=== PATIENT | male | born 1985 | race Caucasian/White ===

== ENCOUNTER 2020-06-29 09:36 | Emergency (ER) | payer OTHER, SELFPAY ==
--- NOTE | ~2020-06-29 | XR_ITS ---
EXAMINATION: XR clavicle RT DATE: 06/29/2020 10:53 INDICATION: Right clavicle pain. TECHNIQUE: 2 views of right clavicle were obtained. COMPARISON: None. FINDINGS: Bone alignment is normal. No fracture. Joint spaces are normal. IMPRESSION: 1. No fracture. Reviewed, dictated and finalized at location B. FOOD DOUGH MIXER IMPRESSION: 1. No fracture.
--- NOTE | ~2020-06-29 | XR_ITS ---
EXAMINATION: XR sacrum coccyx min 2V EXAM DATE: 06/29/2020 10:53 INDICATION: buttock pain s/p fall 2 days ago. Initial encounter. TECHNIQUE: Frontal, inlet, lateral projections of the sacrum and coccyx. There is no prior study fo r comparison. FINDINGS: There are no acute sacrococcygeal fractures or dislocations identified. Sacrum, sacroiliac joints, sacral arcuate lines are intact. There is no subcutaneous gas. The soft tissue is unremark able. There are no radiopaque foreign bodies. IMPRESSION: Unremarkable sacrococcygeal exam. Reviewed, dictated and finalized at location A. SH MACHINE TENDER
[2020-06-29 10:07] VITALS: BP 125/75; PULSE 86; RESP 16; TEMP 37.1; O2SAT 99
--- NOTE | 2020-06-29 10:10 | ED.MALEGU ---
HPI - Male Genitourinary General Chief complaint: Urogenital-Male Stated complaint: possible uti Time Seen by Provider: 06/29/20 10:11 Source: patient Mode of arrival: ambulatory Limitations: no limitations History of Present Illness HPI Narrative: Luis Syed is a 34 yo male who is autistic and lives in a [place] [facility]. Pt is here with his caregiver. He states that urine started to burn and have frequency yesterday. No abdominal pain, no fever, no N/V/D. Patient fell in shower about 2 days ago but is unclear about the exact time states hit sacrum which is now sore especially when he sits and his right clavicle which has pinpoint tenderness in the proximal end of the right clavicle but has normal range of motion of arm Related Data Home Medications Medication Instructions Recorded Confirmed acetaminophen 325 mg capsule 650 mg PO Q4H PRN cap 05/02/19 06/29/20 aluminum-mag hydroxide-simethicone 15 ml PO ONCE PRN ml 05/02/19 06/29/20 200 mg-200 mg-20 mg/5 mL oral susp aripiprazole 20 mg tablet 20 mg PO BID tablet 05/02/19 06/29/20 bisacodyl 5 mg tablet 10 mg PO DAILY PRN tablet 05/02/19 06/29/20 bismuth subsalicylate 262 mg/15 mL 524 mg PO Q1H PRN 05/02/19 06/29/20 oral suspension diphenhydramine HCl 25 mg capsule 25 mg PO Q6H PRN 05/02/19 06/29/20 lisinopril 20 mg tablet 20 mg PO DAILY 05/02/19 06/29/20 neomycin-bacitracn Zn-polymyx 3.5 1 applic TOPICAL BID 05/02/19 06/29/20 mg-400 unit-5,000 unit/gram top oint omeprazole 40 mg capsule,delayed 40 mg PO DAILY 05/02/19 06/29/20 release oxcarbazepine 600 mg tablet 1,200 mg PO BID tablet 05/02/19 06/29/20 sertraline 100 mg tablet 300 mg PO DAILY tablet 05/02/19 06/29/20 aripiprazole 15 mg PO DAILY 06/29/20 06/29/20 aripiprazole 30 mg PO DIRECTED 06/29/20 06/29/20 Allergies Allergy/AdvReac Type Severity Reaction Status Date / Time Tricyclic Compounds Allergy Mild Unknown Verified 06/29/20 09:57 Review of Systems Review of Systems: Narrative: CONSTITUTIONAL: Denies fever, chills, sweats. EYES: Denies visual changes, redness, discharge. ENT: Denies rhinorrhea, congestion, sore throat, otalgia. CARDIOVASCULAR: Denies chest pain, palpitations, edema. RESPIRATORY: Denies dyspnea, wheezing, cough GASTROINTESTINAL: Denies abdominal pain, nausea, vomiting, diarrhea. GENITOURINARY:has dysuria, hematuria, abnormal discharge SKIN: Denies rash or itching. NEUROLOGIC: Denies numbness, or focal weakness. PSYCHIATRIC: Denies anxiety or depression. sacral pain and R proximal clavicle PMFSH Past Medical History Medical History Anxiety and depression Attention deficit disorder predominant inattentive type Autistic disorder Carpal tunnel syndrome, bilateral upper limbs Congenital ankle deformity Depressive disorder Obesities, morbid Obstructive apnea Overactive bladder Pes planus of both feet Vitamin D deficiency, unspecified Surgical History Surgical History No history of previous surgery Family History Family History Other Family history of mental disorder Social History Social History Smoking status: Never smoker Alcohol intake: never Gender identity (if verbalized by the patient): Male Comments At time of signature, I agree with nursing past medical, surgical, social and family history. There is no relevant family history pertinent to the presenting complaint. Exam Narrative: Exam Narrative: GENERAL: This is a well-nourished, well-developed patient, in mild distress. HEAD: normocephalic, atraumatic. EYES: Sclera clear/white. Vision is grossly intact. EARS: External ears normal, . Hearing grossly intact. NOSE: External nose normal without nasal discharge, nares without redness, no rhinorrhea. THROAT: Mucous membranes
== END 2020-06-29 11:23 | disposition home or self-care (01) ==
PROVIDERS: Emergency Provider Nurse Practitioner
DX: N30.00 Acute cystitis without hematuria (principal); M53.3 Sacrococcygeal disorders, not elsewhere classified; S40.011A Contusion of right shoulder, initial encounter; W19.XXXA Unspecified fall, initial encounter; F41.9 Anxiety disorder, unspecified; F32.9 Major depressive disorder, single episode, unspecified; F98.8 Other specified behavioral and emotional disorders with onset usually occurring in childhood and adolescence; F84.0 Autistic disorder; G47.33 Obstructive sleep apnea (adult) (pediatric)
CPT/HCPCS: 72220; 73000; 81003; 87077; 87086; 87088; 99214; G0463

== ENCOUNTER 2021-02-21 13:35 | Outpatient (CLI) | payer OTHER, SELFPAY ==
--- NOTE | ~2021-02-21 | US_ITS ---
US renal BI 02/21/2021 14:12 Procedure: Realtime transabdominal ultrasound of the kidneys and bladder. Indication: Hematuria Comparison: No prior studies for comparison. Findings: Renal echotexture is normal bilaterally without hydronephrosis, contour deforming mass or r enal calculus. The right kidney measures 10.3 cm and left kidney measures 10.5 cm. Bladder is not wel l distended for evaluation. Impression: 1: Unremarkable renal ultrasound. No stones, masses or hydronephrosis. Reviewed, dictated and finalized at location A. Impression: 1: Unremarkable renal ultrasound. No stones, masses or hydronephrosis.
== END 2021-02-21 13:36 | disposition home or self-care (01) ==
PROVIDERS: PCP Family Medicine; Visit Provider Family Medicine
DX: R31.9 Hematuria, unspecified (principal)
CPT/HCPCS: 76775

== ENCOUNTER 2021-03-14 09:19 | Emergency (ER) | payer OTHER, SELFPAY ==
[2021-03-14 09:30] VITALS: BP 125/70; PULSE 97; RESP 16; TEMP 36.7; O2SAT 99
--- NOTE | 2021-03-14 09:37 | ED.BACK ---
HPI - Back Pain/Injury General Chief Complaint: Back Pain/Injury Stated Complaint: Back Pain Time Seen by Provider: 03/14/21 09:35 Source: patient Mode of arrival: ambulatory Limitations: no limitations History of Present Illness HPI Narrative: Luis Syed is a 35-year-old male who lives in a group on with a PMH of autism who comes to [facility] with complaints of back pain after doing some general stretching exercises started yesterday and has gotten worse Related Data Home Medications Medication Instructions Recorded Confirmed acetaminophen 325 mg capsule 650 mg PO Q4H PRN cap 05/02/19 03/14/21 aluminum-mag hydroxide-simethicone 15 ml PO ONCE PRN ml 05/02/19 03/14/21 200 mg-200 mg-20 mg/5 mL oral susp aripiprazole 20 mg tablet 20 mg PO BID tablet 05/02/19 03/14/21 bisacodyl 5 mg tablet 10 mg PO DAILY PRN tablet 05/02/19 03/14/21 bismuth subsalicylate 262 mg/15 mL 524 mg PO Q1H PRN 05/02/19 03/14/21 oral suspension diphenhydramine HCl 25 mg capsule 25 mg PO Q6H PRN 05/02/19 03/14/21 lisinopril 20 mg tablet 20 mg PO DAILY 05/02/19 03/14/21 oxcarbazepine 600 mg tablet 1,200 mg PO BID tablet 05/02/19 03/14/21 sertraline 100 mg tablet 300 mg PO DAILY tablet 05/02/19 03/14/21 aripiprazole 15 mg PO DAILY 06/29/20 03/14/21 topiramate 50 mg tablet 100 mg PO BID tablet 09/05/20 03/14/21 dextroamphetamine-amphetamine 20 20 mg PO DAILY 02/07/21 03/14/21 mg tablet dextroamphetamine-amphetamine ER 20 mg PO DAILY 02/07/21 03/14/21 20 mg 24hr capsule,extend release dextroamphetamine-amphetamine ER 30 mg PO DAILY 02/07/21 03/14/21 30 mg 24hr capsule,extend release Allergies Allergy/AdvReac Type Severity Reaction Status Date / Time Tricyclic Compounds Allergy Mild Unknown Verified 03/14/21 09:46 Review of Systems Review of Systems: CONSTITUTIONAL: Denies fever, chills, sweats. EYES: Denies visual changes, redness, discharge. ENT: Denies rhinorrhea, congestion, sore throat, otalgia. CARDIOVASCULAR: Denies chest pain, palpitations, edema. RESPIRATORY: Denies dyspnea, wheezing, cough GASTROINTESTINAL: Denies abdominal pain, nausea, vomiting, diarrhea. GENITOURINARY: Denies dysuria, hematuria, abnormal discharge SKIN: Denies rash or itching. NEUROLOGIC: Denies numbness, or focal weakness. PSYCHIATRIC: Denies anxiety or depression. Right thoracic back pain PMFSH Past Medical History Medical History Anxiety and depression Attention deficit disorder predominant inattentive type Autistic disorder Carpal tunnel syndrome, bilateral upper limbs Congenital ankle deformity Depressive disorder Obesities, morbid Obstructive apnea Overactive bladder Pes planus of both feet Vitamin D deficiency, unspecified Surgical History Surgical History No history of previous surgery Family History Family History Other Family history of mental disorder Social History Social History Alcohol intake: never Gender identity (if verbalized by the patient): Male Comments At time of signature, I agree with nursing past medical, surgical, social and family history. There is no relevant family history pertinent to the presenting complaint. Exam Narrative: GENERAL: This is a well-nourished, well-developed patient, in mild distress. HEAD: normocephalic, atraumatic. EYES: Sclera clear/white. Vision is grossly intact. EARS: External ears normal, . Hearing grossly intact. NOSE: External nose normal without nasal discharge, nares without redness, no rhinorrhea. THROAT: Mucous membranes moist, NECK: Neck supple, non-tender CARDIOVASCULAR: Regular rate and rhythm without murmurs, gallops, or rubs. RESPIRATORY: Clear to auscultation. Breath sounds equal bilaterally. No wheezes, rales, or rhonchi. GASTROINTESTINA
== END 2021-03-14 10:05 | disposition home or self-care (01) ==
PROVIDERS: Emergency Provider Nurse Practitioner; PCP Family Medicine
DX: M54.6 Pain in thoracic spine (principal); F41.9 Anxiety disorder, unspecified; F32.9 Major depressive disorder, single episode, unspecified; F84.0 Autistic disorder; Q79.9 Congenital malformation of musculoskeletal system, unspecified; E66.01 Morbid (severe) obesity due to excess calories; G47.33 Obstructive sleep apnea (adult) (pediatric); F98.8 Other specified behavioral and emotional disorders with onset usually occurring in childhood and adolescence
CPT/HCPCS: 99213; G0463

== ENCOUNTER 2021-05-29 13:55 | Outpatient (CLI) | payer OTHER, SELFPAY ==
--- NOTE | ~2021-05-29 | CT_ITS ---
EXAMINATION: CT abdomen pelvis wo/w con DATE: 05/29/2021 14:39 INDICATION: Hematuria TECHNIQUE: Computed tomography (CT) of the abdomen and pelvis was performed without and subsequently with 130 cc Omnipaque 350 intravenous contrast. Automated exposure control and iterative reconstructi on technique were employed. Exam dose: 2818.05 mGy-cm total exam DLP. COMPARISON: 02/21/2021 bilateral renal ultrasound examination 05/[address] abdomen pelvis FINDINGS: The lung bases are clear of infiltrate or consolidation. Normal heart size. No pericardial or pleural effusion. Borderline splenomegaly, spleen measuring up to 13.4 centers maximal vertical dimension. No hepatic, splenic, pancreatic space-occupying mass lesion. No pancreatic calcification. No pancreat ic duct are bile duct dilatation. Normal morphology of the adrenal glands. No urinary tract calculus or hydroureteronephrosis. No renal space occupying mass lesion is evident. There is a transverse up to approximately 9 mm AP dimension and 5 cm width band of decreased attenuat ion in the posterior aspect of the urinary bladder with some contrast material insinuating between th is and the posterior wall of the urinary bladder, suggesting this may be some blood clot in the depen dent aspect of the urinary bladder. Consider correlation with direct visualization by cystoscopy give n the history of hematuria. No bladder wall thickening is noted. The prostate gland and seminal vesic les appear unremarkable. There is scattered small bowel air-fluid levels but no abnormal dilatation of the small or large luisa l or bowel wall thickening or intraperitoneal free air. No suspicious osteolytic or osteoblastic lesions are noted. IMPRESSION: Probable blood products in the posterior aspect of the urinary bladder; consider cystosc opic correlation No urinary tract calculus or hydroureteronephrosis or urinary tract mass lesion is noted otherwise Borderline splenomegaly Reviewed, dictated and finalized at [facility]. Reviewed, dictated and finalized at location B. 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
[2021-05-29 14:26] LABS: Estimated Glomerular Filt Rate > 60
== END 2021-05-29 13:56 | disposition home or self-care (01) ==
LOC: ANHIMG 13:57
PROVIDERS: PCP Family Medicine; Visit Provider Physician Assistant
DX: R31.9 Hematuria, unspecified (principal)
CPT/HCPCS: 74178; Q9967

== ENCOUNTER 2022-03-27 11:02 | Emergency (ER) | payer MEDICARE, MEDICAID, SELFPAY ==
[2022-03-27 11:14] VITALS: BP 138/86; PULSE 104; RESP 18; TEMP 37.1; O2SAT 100
--- NOTE | 2022-03-27 11:48 | ED.URI ---
HPI - URI/Sore Throat General Chief Complaint: Upper Respiratory Infection Stated Complaint: Coughing, Sore Throat Time Seen by Provider: 03/27/22 11:48 Source: patient and RN notes reviewed Mode of arrival: ambulatory Limitations: no limitations History of Present Illness HPI Narrative: 36-year-old male with a history of hypertension, acid reflux, autism, borderline in electrical functioning and ADHD as well as obstructive sleep apnea and morbid obesity presents to the [facility] with complaints of cough, sore throat. Has a productive cough with sinus pressure for the last week or so. Had tried [id number] products. [facility] Related Data Home Medications Medication Instructions Recorded Confirmed acetaminophen 325 mg capsule 650 mg PO Q4H PRN Fever 05/02/19 11/05/21 aluminum-mag hydroxide-simethicone 15 ml PO ONCE PRN indigestion 05/02/19 11/05/21 200 mg-200 mg-20 mg/5 mL oral susp (Mintox) bisacodyl 5 mg tablet 10 mg PO DAILY PRN constipation 05/02/19 11/05/21 bismuth subsalicylate 262 mg/15 mL 524 mg PO Q1H PRN Fever 05/02/19 11/05/21 oral suspension (Bismatrol) diphenhydramine HCl 25 mg capsule 25 mg PO Q6H PRN Agitation 05/02/19 11/05/21 lisinopril 20 mg tablet 20 mg PO DAILY 05/02/19 11/05/21 oxcarbazepine 600 mg tablet 1,200 mg PO BID 05/02/19 11/05/21 aripiprazole 15 mg tablet 15 mg PO DAILY 06/29/20 11/05/21 topiramate 50 mg tablet 100 mg PO BID 09/05/20 11/05/21 dextroamphetamine-amphetamine 20 20 mg PO DAILY 02/07/21 11/05/21 mg tablet (Adderall) dextroamphetamine-amphetamine ER 30 mg PO DAILY 02/07/21 11/05/21 30 mg 24hr capsule,extend release aripiprazole 20 mg tablet (Abilify) 20 mg PO DAILY 06/27/21 11/05/21 dextroamphetamine-amphetamine ER 20 mg PO BID 06/27/21 11/05/21 20 mg 24hr capsule,extend release sertraline 100 mg tablet 250 mg PO DAILY 06/27/21 11/05/21 Allergies Allergy/AdvReac Type Severity Reaction Status Date / Time Tricyclic Compounds Allergy Mild Unknown Verified 11/05/21 13:31 Review of Systems Review of Systems: All systems reviewed & are unremarkable except as noted in HPI and below Constitutional: Constitutional: Reports no additional constitutional complaints, Denies chills and Denies fever(s) Eyes: Eyes: Reports no additional eye complaints ENT: Reports as per HPI, Reports nasal congestion and Reports sore throat Cardiovascular: Cardiovascular: Reports no additional cardiovascular complaints Respiratory: Respiratory: Reports no additional respiratory complaints Gastrointestinal: Gastrointestinal: Reports no additional gastrointestinal complaints Musculoskeletal: Musculoskeletal: Reports no additional musculoskeletal complaints Integumentary/Breasts: Skin/Breast: Reports system reviewed and no additional complaints, except as docu Neurologic: Reports system reviewed and no additional complaints, except as documented Psychiatric: Psychiatric: Reports no additional psychiatric complaints Allergic/Immunologic: Allergic/Immunologic: Reports no additional allergic/immunologic complaints PMFSH Past Medical History Medical History (Updated 03/27/22 @ 20:09 by Carmen Araujo APRN) Anxiety Anxiety and depression Attention deficit disorder predominant inattentive type Autistic disorder Carpal tunnel syndrome, bilateral upper limbs Congenital ankle deformity Congenital pes planovalgus Depression Depressive disorder HTN (hypertension) Obesities, morbid Obstructive apnea Overactive bladder Pes planus of both feet Vitamin D deficiency, unspecified Wears glasses Weight gain Surgical History Surgical History No history of previous surgery Family History Family History Other Family history of mental disorder Social History Social History Smoking status: Never smoker Alc
== END 2022-03-27 12:00 | disposition home or self-care (01) ==
PROVIDERS: Emergency Provider Nurse Practitioner; PCP Family Medicine
DX: J01.90 Acute sinusitis, unspecified (principal); J40 Bronchitis, not specified as acute or chronic; K21.9 Gastro-esophageal reflux disease without esophagitis; F84.0 Autistic disorder; F90.9 Attention-deficit hyperactivity disorder, unspecified type; G47.33 Obstructive sleep apnea (adult) (pediatric); E66.01 Morbid (severe) obesity due to excess calories; Z68.39 Body mass index [BMI] 39.0-39.9, adult; F41.9 Anxiety disorder, unspecified; F32.A Depression, unspecified; I10 Essential (primary) hypertension
CPT/HCPCS: 99213; G0463

== ENCOUNTER 2023-03-20 08:04 | Emergency (ER) | payer MEDICARE, MEDICAID, SELFPAY ==
--- NOTE | 2023-03-20 08:06 | ED.URI ---
HPI - URI/Sore Throat General Chief Complaint: Upper Respiratory Infection Stated Complaint: Sinus/Ears/Throat Irritation Time Seen by Provider: 03/20/23 08:16 Source: patient, RN notes reviewed and old records reviewed Mode of arrival: ambulatory Limitations: no limitations History of Present Illness HPI Narrative: 37-year-old male presents to the [facility] with complaints of sore throat, cough, nasal congestion for 3 days. States he felt afebrile on the 1st day. Has taken Tylenol and Benadryl. Has a history of autism, hypertension Currently [facility] in a [facility] Related Data Home Medications Medication Instructions Recorded Confirmed acetaminophen 325 mg capsule 650 mg PO Q4H PRN Fever 05/02/19 03/20/23 aluminum-mag hydroxide-simethicone 15 ml PO ONCE PRN indigestion 05/02/19 03/20/23 200 mg-200 mg-20 mg/5 mL oral susp (Mintox) bisacodyl 5 mg tablet 10 mg PO DAILY PRN constipation 05/02/19 03/20/23 bismuth subsalicylate 262 mg/15 mL 524 mg PO Q1H PRN Fever 05/02/19 03/20/23 oral suspension (Bismatrol) diphenhydramine HCl 25 mg capsule 25 mg PO Q6H PRN Agitation 05/02/19 03/20/23 lisinopril 20 mg tablet 20 mg PO DAILY 05/02/19 03/20/23 oxcarbazepine 600 mg tablet 1,200 mg PO BID 05/02/19 03/20/23 aripiprazole 15 mg tablet 15 mg PO DAILY 06/29/20 03/20/23 topiramate 50 mg tablet 100 mg PO BID 09/05/20 03/20/23 dextroamphetamine-amphetamine ER 30 mg PO DAILY 02/07/21 03/20/23 30 mg 24hr capsule,extend release aripiprazole 20 mg tablet (Abilify) 20 mg PO DAILY 06/27/21 03/20/23 sertraline 100 mg tablet 250 mg PO DAILY 06/27/21 03/20/23 baclofen 10 mg tablet 10 mg PO .tid prn 08/11/22 03/20/23 Allergies Allergy/AdvReac Type Severity Reaction Status Date / Time Tricyclic Antidepressants Allergy Mild Unknown Verified 10/13/23 08:09 and Tricy [Tricyclic Compounds] Review of Systems Review of Systems: All systems reviewed & are unremarkable except as noted in HPI and below Constitutional: Constitutional: Reports no additional constitutional complaints Eyes: Eyes: Reports no additional eye complaints ENT: Reports as per HPI and Reports sore throat Cardiovascular: Cardiovascular: Reports no additional cardiovascular complaints, Denies chest pain and Denies dyspnea Respiratory: Respiratory: Reports as per HPI, Denies chest congestion, Reports cough and Denies dyspnea Gastrointestinal: Gastrointestinal: Reports no additional gastrointestinal complaints, Denies abdominal pain, Denies nausea and Denies vomiting Musculoskeletal: Musculoskeletal: Reports no additional musculoskeletal complaints Integumentary/Breasts: Skin/Breast: Reports system reviewed and no additional complaints, except as docu Neurologic: Reports system reviewed and no additional complaints, except as documented Psychiatric: Psychiatric: Reports no additional psychiatric complaints Allergic/Immunologic: Allergic/Immunologic: Reports no additional allergic/immunologic complaints PMFSH Past Medical History Medical History Anxiety Anxiety and depression Attention deficit disorder predominant inattentive type Autistic disorder Bilateral anterior knee pain Carpal tunnel syndrome, bilateral upper limbs Congenital ankle deformity Congenital pes planovalgus Depression Depressive disorder HTN (hypertension) Obesities, morbid Obstructive apnea Overactive bladder Pes planus of both feet Vitamin D deficiency, unspecified Wears glasses Weight gain Surgical History Surgical History No history of previous surgery Family History Family History Other Family history of mental disorder Social History Social History Smoking status: Never smoker Alcohol intake: never Substance use: unknown Lack of Transportati
[2023-03-20 08:26] VITALS: BP 137/82; PULSE 110; RESP 20; TEMP 37.3; O2SAT 100
== END 2023-03-20 08:50 | disposition home or self-care (01) ==
PROVIDERS: Emergency Provider Nurse Practitioner; PCP Family Medicine
DX: J06.9 Acute upper respiratory infection, unspecified (principal); R09.82 Postnasal drip; I10 Essential (primary) hypertension; Z20.822 Contact with and (suspected) exposure to COVID-19; Z79.899 Other long term (current) drug therapy
CPT/HCPCS: 87081; 87426; 87804; 87880; 99213; C9803; G0463

== ENCOUNTER 2024-05-29 14:06 | Emergency (ER) | payer MEDICARE, MEDICAID, OTHER, SELFPAY ==
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
[2024-05-29 14:12] VITALS: BP 140/65; PULSE 86; RESP 17; TEMP 36.4; O2SAT 100
[2024-05-29] MEDS: ACETAMINOPHEN 500 MG TABLET 1000 MG PO (15:30)
[2024-05-29] MEDS: KETOROLAC 30 MG/ML VIAL (*BKC) IM (15:30)
[2024-05-29] MEDS: methocarbamoL 750 MG TABLET PO (15:31)
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
== END 2024-05-29 18:57 | disposition home or self-care (01) ==
PROVIDERS: Emergency Provider Student in an Organized Health Care Education/Training Program; PCP Family Medicine
DX: S13.4XXA Sprain of ligaments of cervical spine, initial encounter (principal); V89.2XXA Person injured in unspecified motor-vehicle accident, traffic, initial encounter; W22.19XA Striking against or struck by other automobile airbag, initial encounter; F41.8 Other specified anxiety disorders; I10 Essential (primary) hypertension; F84.0 Autistic disorder; E55.9 Vitamin D deficiency, unspecified; E66.01 Morbid (severe) obesity due to excess calories; Z68.35 Body mass index [BMI] 35.0-35.9, adult; Q66.6 Other congenital valgus deformities of feet
CPT/HCPCS: 71046; 72125; 72128; 99284; A9270; J1885

== ENCOUNTER 2024-11-17 15:12 | Outpatient (CLI) | payer MEDICARE, MEDICAID, SELFPAY ==
[2024-11-17 19:40] LABS: Basophils Percent Auto 0.4 % (0.2-1.2); Eosinophils Percent Auto 0.8 % (0-4.4); Hematocrit 44.1 % (42.0-52.0); Immature Granulocyte Absolute 0.03 K/mm3 (0.00-0.031); Immature Granulocyte Percent A 0.6 % (0-0.5); Lymphocytes Absolute Auto 1.67 K/mm3 (0.9-3.2); Lymphocytes Percent Auto 31.3 % (18.3-44.2); Mean Corpuscular Hemoglobin 30.9 pg (26-34); Mean Corpuscular Volume 90.9 fl (80-100); Mean Platelet Volume 9.6 fl (7.4-10.4); Monocytes Absolute Auto 0.5 K/mm3 (0.1-0.6); Monocytes Percent Auto 8.4 % (2.6-8.5); Neutrophils Absolute Auto 3.1 K/mm3 (1.3-6.7); Neutrophils Percent Auto 58.5 % (45.5-73.1); Platelet Count Result 192 k/mm3 (150-375); Red Blood Count 4.85 M/mm3 (4.6-6.20); Red Cell Distribution Width 12.7 % (11.5-14.5); White Blood Count 5.3 K/mm3 (4.5-10.0)
[2024-11-17 21:11] LABS: Alanine Aminotransferase 23 U/L (6-50); Albumin Level 4.7 g/dL (3.5-5.1); Alkaline Phosphatase 77 U/L (38-126); Anion Gap 9 mmol/L (4-12); Aspartate Amino Transferase 34 U/L (17-59); Bilirubin,Total 0.5 mg/dL (0.2-1.3); Blood Urea Nitrogen 10 mg/dL (9-20); Calcium 9.4 mg/dL (8.4-10.2); Carbon Dioxide 26 mmol/L (22-30); Chloride 94 mmol/L (98-107); Cholesterol 139 mg/dL (0-200); Estimated Glomerular Filt Rate > 60; Glucose 84 mg/dL (65-110); HDL Direct 56 mg/dL; Potassium 4.2 mmol/L (3.4-5.0); Sodium 129 mmol/L (137-145); Total Protein 7.3 g/dL (6.3-8.2); Triglycerides 55 mg/dL (<150)
[2024-11-17 21:22] LABS: LDL Cholesterol Direct 60 mg/dL
[2024-11-19 07:08] LABS: Varicella IgG Antibody 4.93 S/CO
== END 2024-11-17 15:13 | disposition home or self-care (01) ==
PROVIDERS: PCP Family Medicine; Visit Provider Family Medicine
DX: F41.9 Anxiety disorder, unspecified (principal); F32.9 Major depressive disorder, single episode, unspecified; I10 Essential (primary) hypertension; G47.33 Obstructive sleep apnea (adult) (pediatric)
CPT/HCPCS: 36415; 80053; 80061; 84443; 85025; 86787